=== PATIENT | male | born 1970 | race Caucasian/White ===

== ENCOUNTER 2025-09-05 21:09 | Observation (INO) ==
[2025-09-05 21:46] LABS: Hematocrit (blood only) 43.4 % (42.0-52.0); Hemoglobin 15.4 g/dL (14.0-18.0); Immature Granulocytes # (auto) 0.01 K/uL (0.01-0.20); Immature Granulocytes % (auto) 0.1 %; Mean Corpuscular Hemoglobin 30.7 pg (25.0-34.0); Mean Corpuscular Volume 86.6 fL (80.0-100.0); Platelet Count 147 K/uL (130-400); RDW Standard Deviation 39.4 fL (36.4-46.3); Red Blood Count 5.01 M/uL (4.70-6.10); White Blood Count 7.41 K/ul (4.8-10.8)
--- NOTE | 2025-09-05 21:50 | Emergency Department Note ---
Impression & Plan GBM (glioblastoma multiforme), Seizure ED Provider Note NAME: ISAIAH WHITTEN AGE: 55 SEX: M : 1970 ARRIVES VIA: Walk-In INFORMANT: Patient ED PROVIDER(S): Dorian Benton DO CHIEF COMPLAINT: Right-sided weakness HPI: Patient is a 55-year-old male with a past medical history of GBM and resection in 2020 in 2024 who had a recent MRI which showed a likely recurrence. He presents to the ER as tonight around 745 to 8 PM he had tingling in bilateral hands and then had right-sided facial droop right arm and right leg weakness. Patient denies any head pain or neck pain. No chest pain or shortness of breath. No belly pain. No nausea, vomiting, or diarrhea. No dysuria, urgency or frequency. No other exacerbating or remitting factors. ADDITIONAL HISTORY OBTAINED: Per HPI Chronic Medical/Social Conditions Affecting Care: Per HPI PAST MEDICAL HISTORY:See Below PAST SURGICAL HISTORY:See Below FAMILY HISTORY:See Below SOCIAL HISTORY:See Below HOME MEDICATIONS:See Below ALLERGIES:See Below VITALS:See Below PHYSICAL EXAMINATION: GENERAL: Sitting up in bed, alert, right-sided facial droop EYE EXAM: normal conjunctiva. PERRL and EOM's grossly intact. OROPHARYNX: no exudate, no erythema, lips, buccal mucosa, and tongue normal and mucous membranes are moist NECK: supple, no nuchal rigidity, no adenopathy, non-tender LUNGS: Clear to auscultation. Normal chest wall mechanics HEART: no murmurs, S1 normal and S2 normal ABDOMEN: abdomen soft, non-tender, normo-active bowel sounds, no masses, no rebound or guarding. BACK: Back is symmetrical on inspection and there is no deformity, no midline tenderness, no CVA tenderness. SKIN: no rashes and no bruising UPPER EXTREMITIES: upper extremities are grossly normal. LOWER EXTREMITIES: No pitting edema. NEURO EXAM: Normal sensorium, cranial nerves II through XII are intact with the exception of right-sided facial droop, normal speech, weakness of the right arm and right leg MEDICAL DECISION MAKING: Patient is a 55-year-old male who presents ER for the above-stated complaint. IV was established and blood work is obtained. Labs show no significant leukocytosis or anemia. INR unremarkable. BMP along LFTs bilirubin and troponin was negative. CT angios of the head and neck show no LVO. Stroke alert was called. Discussed with Dana telestroke and they evaluate the patient at bedside. They favor that this is likely seizure related. Recommended additional 1 g of Keppra in combination with continuing his current Decadron regiment without increasing dose. They note he does not need to be transferred tonight. Did recommend discussion with his surgeon/oncologist tomorrow and recommended EEG and Case was discussed with the hospitalist for further evaluation management treatment. Consults/Care Managements Discussions: Per [facility] Triage Nursing notes reviewed. Limited review of prior medical records performed Vital Signs: reviewed and remarkable for no significant abnormalities Differential diagnosis: Differential Diagnosis includes but is not limited to ischemic Stroke, hemorrhagic stroke, bells palsy, mass, neoplasm, migraine headache, seizure, subarachnoid hemorrhage, TIA, and transient global amnesia. ER treatment provided: See below Diagnostics interpreted by me include EKG and cardiac monitoring as listed below: -Cardiac Monitoring: An order was placed for continuous cardiac monitoring. The monitor shows a rate of 80 with sinus rhythm. -ECG: Sinus rhythm rate of 68 Normal axis Right bundle branch block QTc 455 -Laboratory studies:Interpreted by me as stated above in MDM and shown below. Imaging studies: Xrays: As interpreted by me:none CTs show: CT of the head per my pleurae interpretation showed no obvious large bleed CT angios of the head and neck as described above Procedures:none Critical Care: None Past Med/Surg History Problem List (Updated 09/06/25 @ 16:13 by Shelton Akins MD, PhD) Seizure Vasogenic edema Stroke-like symptoms Right hemiplegia GBM (glioblastoma multiforme) (Acute) Homonymous hemianopia Sleep apnea Seizure (Acute 2020) Stroke Dyslipidemia Malignant neoplasm of brain treated with radiation therapy (2020) Cerebrovascular accident (CVA) of right basal ganglia Glioblastoma multiforme of occipital lobe (2020) Glioblastoma multiforme of parietal lobe (2020) Surgical History S/P craniotomy S/P vasectomy S/P craniotomy (2020) Family History Mother Age: 84 Multiple sclerosis Depression Father Alcohol abuse Heart disease Hypertension Grandmother Hypercholesterolemia Hypertension Grandfather Hypercholesterolemia Hypertension Grandmother Breast cancer Hypercholesterolemia Hypertension Grandfather Hypercholesterolemia Hypertension Uncle Hypercholesterolemia Hypertension Parkinson's disease not affecting current episode of care Social History Smoking Status: Never smoker Second Hand Exposure: No; Do You Dip or Chew Tobacco: No; Hx Alcohol Use: No Hx Substance Use: No Preferred Language: B[place] Communication Ability: Effective Visual Impairment: No Limitations Hearing Ability: Normal Can Slider Required: Yes Beliefs That Will Affect Care: None marital status: Current Living Situation: Spouse current occupational status: retired Feels Safe at Home: Yes Safety Concerns: Feels Safe At This Time Childhood Exposure to Second-Hand Smoke: Yes Diet: low carbohydrate Diet Comment: mostly KETO caffeine: No Dental Care, Regularly: No Physical Activity Frequency: Daily Seatbelt Use: always Sunscreen Use: Yes Assistive Devices: None Assistive Devices Comment: Wears CPAP HS Allergies Allergies Allergy/AdvReac Type Severity Reaction Status Date / Time No Known Allergies Allergy Verified 09/04/25 07:50 Home Meds Home Medications Medication Instructions Recorded Confirmed metformin 500 mg tablet 250 mg PO DAILY 10/21/22 09/06/25 melatonin 10 mg capsule 20 mg PO HS 06/14/24 09/06/25 aspirin 325 mg tablet 325 mg PO DAILY 11/17/24 09/06/25 levetiracetam 1,000 mg tablet 1,500 mg PO BID 05/23/25 09/06/25 (Keppra) clobazam 10 mg tablet 5 mg PO HS 06/15/25 09/06/25 fluoxetine 20 mg capsule 20 mg PO HS 09/04/25 09/06/25 gabapentin 300 mg capsule 300 mg PO HS 09/04/25 09/06/25 loratadine 10 mg tablet (Claritin) 10 mg PO DAILY 09/04/25 09/06/25 midazolam 5 mg/spray (0.1 mL) 5 mg intranasal ONCE PRN Seizures 09/04/25 09/06/25 nasal spray (Nayzilam) temozolomide 100 mg capsule 100 mg PO DAILY 09/04/25 09/06/25 valacyclovir 1 gram tablet 1,000 mg PO DAILY 09/04/25 09/06/25 (Valtrex) naltrexone 4.5 mg capsule 4.5 mg PO DAILY 09/06/25 09/06/25 Previous Rx's Medication Instructions Recorded atorvastatin 80 mg tablet 80 mg PO DAILY #90 tabs 10/14/24 digestive enzymes 1 tab PO DAILY #30 tabs 11/17/24 ezetimibe 10 mg tablet (Zetia) 10 mg PO DAILY #90 tabs 07/19/25 dexamethasone 4 mg tablet 4 mg PO DAILY #30 tabs 09/06/25 divalproex 500 mg tablet,delayed 500 mg PO BID #60 tabs 09/06/25 release pantoprazole 40 mg tablet,delayed 40 mg PO QAM #30 tabs 09/06/25 release Results & Data (ED) Vital Signs Vital Signs - 24 hr 09/05/25 21:10 09/05/25 21:22 09/05/25 21:23 Temperature 36.9 C Temperature Source Oral Pulse Rate 72 68 Pulse Rate [Apical] Pulse Rate from SpO2 Sensor 66 Pulse Rhythm Regular Pulse Strength Normal Respiratory Rate 18 Respiratory Effort / Characteristics Non-Labored Spontaneous Respiratory Depth Normal Respiratory Pattern Regular Blood Pressure 124/83 133/91 Blood Pressure Mean 96 102 Blood Pressure Position Sitting Pulse Oximetry 98 97 Oxygen Delivery Method Room Air Room Air Sepsis Recent Fever Within 48 Hours No Sepsis New/Unexplained Change in Mental Status N/A Sepsis Action Taken by Nursing No Action Required 09/05/25 21:39 09/05/25 21:44 09/05/25 21:47 Temperature Temperature Source Pulse Rate 76 76 Pulse Rate [Apical] Pulse Rate from SpO2 Sensor 81 Pulse Rhythm Pulse Strength Respiratory Rate 19 Respiratory Effort / Characteristics Respiratory Depth Respiratory Pattern Blood Pressure Blood Pressure Mean Blood Pressure Position Pulse Oximetry 97 96 Oxygen Delivery Method Room Air Room Air Sepsis Recent Fever Within 48 Hours Sepsis New/Unexplained Change in Mental Status Sepsis Action Taken by Nursing 09/05/25 21:47 09/05/25 21:48 09/05/25 21:51 Temperature Temperature Source Pulse Rate 79 Pulse Rate [Apical] 74 Pulse Rate from SpO2 Sensor 76 Pulse Rhythm Pulse Strength Respiratory Rate 21 Respiratory Effort / Characteristics Respiratory Depth Respiratory Pattern Blood Pressure 130/92 Blood Pressure Mean 107 Blood Pressure Position Pulse Oximetry 97 Oxygen Delivery Method Room Air Sepsis Recent Fever Within 48 Hours Sepsis New/Unexplained Change in Mental Status Sepsis Action Taken by Nursing 09/05/25 22:00 09/05/25 22:00 09/05/25 22:12 Temperature Temperature Source Pulse Rate 72 70 Pulse Rate [Apical] Pulse Rate from SpO2 Sensor 73 71 Pulse Rhythm Pulse Strength Respiratory Rate 16 18 Respiratory Effort / Characteristics Respiratory Depth Respiratory Pattern Blood Pressure 135/97 135/97 Blood Pressure Mean 109 115 Blood Pressure Position Pulse Oximetry 98 95 Oxygen Delivery Method Room Air Room Air Sepsis Recent Fever Within 48 Hours Sepsis New/Unexplained Change in Mental Status Sepsis Action Taken by Nursing 09/05/25 22:15 09/05/25 22:15 09/05/25 22:21 Temperature Temperature Source Pulse Rate 67 69 Pulse Rate [Apical] Pulse Rate from SpO2 Sensor 66 69 Pulse Rhythm Pulse Strength Respiratory Rate 16 Respiratory Effort / Characteristics Respiratory Depth Respiratory Pattern Blood Pressure 124/85 Blood Pressure Mean 94 Blood Pressure Position Pulse Oximetry 94 97 Oxygen Delivery Method Room Air Room Air Sepsis Recent Fever Within 48 Hours Sepsis New/Unexplained Change in Mental Status Sepsis Action Taken by Nursing 09/05/25 22:30 09/05/25 22:45 09/05/25 23:00 Temperature Temperature Source Pulse Rate 67 66 Pulse Rate [Apical] Pulse Rate from SpO2 Sensor 64 Pulse Rhythm Pulse Strength Respiratory Rate 18 12 17 Respiratory Effort / Characteristics Respiratory Depth Respiratory Pattern Blood Pressure 122/82 121/86 122/84 Blood Pressure Mean 95 97 96 Blood Pressure Position Pulse Oximetry 96 94 98 Oxygen Delivery Method Room Air Sepsis Recent Fever Within 48 Hours Sepsis New/Unexplained Change in Mental Status Sepsis Action Taken by Nursing 09/05/25 23:15 09/05/25 23:30 Temperature Temperature Source Pulse Rate 55 L 65 Pulse Rate [Apical] Pulse Rate from SpO2 Sensor Pulse Rhythm Pulse Strength Respiratory Rate 14 12 Respiratory Effort / Characteristics Respiratory Depth Respiratory Pattern Blood Pressure 122/82 122/87 Blood Pressure Mean 95 98 Blood Pressure Position Pulse Oximetry 94 Oxygen Delivery Method Sepsis Recent Fever Within 48 Hours Sepsis New/Unexplained Change in Mental Status Sepsis Action Taken by Nursing Laboratory Data 09/05/25 21:25 09/05/25 21:25 Lab Results 09/05/25 09/05/25 09/05/25 Range/Units 21:22 21:25 21:27 WBC 7.41 (4.8-10.8) K/ul RBC 5.01 (4.70-6.10) M/uL Hgb 15.4 (14.0-18.0) g/dL POC Hgb 13.9 L (14.0-18.0) g/dl Hct 43.4 (42.0-52.0) % POC Hct 41 L (42-52) % MCV 86.6 (80.0-100.0) fL MCH 30.7 (25.0-34.0) pg MCHC 35.5 (32.0-36.0) g/dL RDW Std Deviation 39.4 (36.4-46.3) fL RDW Coeff of Debra 12.7 (11.5-14.5) % Plt Count 147 (130-400) K/uL MPV 9.1 L (9.4-12.4) fL Immature Gran % (Auto) 0.1 % Neut % (Auto) 76.7 % Lymph % (Auto) 16.2 % [place] % (Auto) 6.5 % Eos % (Auto) 0.1 % Baso % (Auto) 0.4 % Neut # (Auto) 5.68 (1.40-6.50) K/uL Lymph # (Auto) 1.20 (1.20-3.40) K/uL [place] # (Auto) 0.48 (0.11-0.59) K/uL Eos # (Auto) 0.01 (0.00-0.50) K/uL Baso # (Auto) 0.03 (0.00-0.20) K/uL Immature Gran # (Auto) 0.01 (0.01-0.20) K/uL PT 10.4 (9.0-12.0) Seconds INR 1.0 (0.9-1.1) APTT 21 (21-31) Seconds PTT Ratio 0.8 POC Sodium 139 (135-144) mmol/L Sodium 138 (136-145) mmol/L POC Potassium 4.4 (3.3-5.0) mmol/L Potassium 4.3 (3.5-5.1) mmol/L POC Chloride 100 L (101-112) mmol/L Chloride 103 (98-107) mmol/L Carbon Dioxide 29 (21-32) mmol/L POC Total CO2 28 (24-31) mmol/L Anion Gap 6 (3-11) POC Anion Gap 16.0 (16-25) mmol/L POC BUN 21 H (7-18) mg/dl BUN 21 (6-23) mg/dl Creatinine 1.08 (0.6-1.4) mg/dl POC Creatinine 1.2 (0.6-1.3) mg/dl Est Cr Clr Drug Dosing 73.1 ml/min eGFR 81.55 BUN/Creatinine Ratio 19.4 (10-20) Glucose 103 H (70-99(Fasting)) mg/dl POC Glucose 115 H (70-99) mg/dl POC Glucose (other) 97 (70-99) mg/dl Calcium 9.1 (8.6-10.3) mg/dl POC Ioniz Calcium [place] 1.13 (1.12-1.32) mmol/l Magnesium 2.1 (1.7-2.4) mg/dl Total Bilirubin 0.5 (0.2-1.0) mg/dl AST 19 (13-39) U/L ALT 24 (7-52) U/L Alkaline Phosphatase 37 (34-104) U/L Troponin I High Sens < 2.3 (0-20) pg/ml Total Protein 6.4 (6.0-8.3) gm/dl Albumin 4.0 (3.4-5.0) gm/dl Globulin 2.4 L (2.5-4.0) gm/dl Albumin/Globulin Ratio 1.7 (0.9-2) Administered Medications Acetaminophen (Acetaminophen 325 Mg Tab) 650 mg PO Q4H PRN PRN Reason: Pain or Fever Stop: 10/06/25 02:12 Last Admin: 09/06/25 09:16 Dose: 650 mg Documented By: YELITZA Aspirin (Aspirin 325 Mg Ectab) 325 mg PO DAILY [facility] Stop: 10/06/25 08:59 Last Admin: 09/06/25 08:12 Dose: Not Given Documented By: AGNES Dexamethasone (Dexamethasone 4 Mg Tab) 4 mg PO DAILY [facility] Stop: 10/06/25 15:59 Last Admin: 09/06/25 16:57 Dose: 4 mg Documented By: YELITZA Divalproex Sodium (Divalproex Delay Release 500 Mg Tab) 500 mg PO BID [facility] Stop: 10/06/25 10:44 Last Admin: 09/06/25 12:19 Dose: 500 mg Documented By: AGNES Ezetimibe (Ezetimibe 10 Mg Tab) 10 mg PO DAILY [facility] Stop: 10/06/25 08:59 Last Admin: 09/06/25 08:22 Dose: 10 mg Documented By: AGNES Levetiracetam (Levetiracetam 500 Mg Tab) 1,500 mg PO BID [facility] Stop: 10/06/25 08:59 Last Admin: 09/06/25 08:17 Dose: 1,500 mg Documented By: AGNES Loratadine (Loratadine 10 Mg Tab) 10 mg PO DAILY [facility] Stop: 10/06/25 08:59 Last Admin: 09/06/25 08:16 Dose: 10 mg Documented By: AGNES Valacyclovir HCl (Valacyclovir Hcl 500 Mg Tablet) 1,000 mg PO DAILY [facility] Stop: 10/06/25 08:59 Last Admin: 09/06/25 08:22 Dose: 1,000 mg Documented By: AGNES Discontinued Medications Atorvastatin Calcium (Atorvastatin 40 Mg Tab) 80 mg PO DAILY [facility] Stop: 10/06/25 08:59 Last Admin: 09/06/25 12:10 Dose: Not Given Documented By: AGNES Dexamethasone (Dexamethasone 1 Mg Tab) 2 mg PO DAILY [facility] Stop: 10/06/25 08:59 Last Admin: 09/06/25 08:17 Dose: 2 mg Documented By: AGNES Fluoxetine HCl (Fluoxetine Hcl 20 Mg Cap) 20 mg PO DAILY [facility] Stop: 10/06/25 08:59 Last Admin: 09/06/25 12:10 Dose: Not Given Documented By: AGNES Gabapentin (Gabapentin 300 Mg Cap) 300 mg PO QAM [facility] Stop: 10/06/25 08:59 Last Admin: 09/06/25 12:10 Dose: Not Given Documented By: AGNES Gadobutrol (Gadobutrol 65ml Vial) 7 ml IV ONCE ONE Stop: 09/06/25 13:17 Last Admin: 09/06/25 13:12 Dose: 7 ml Documented By: ABDI Acetaminophen (Ofirmev) 1,000 mg in 100 mls @ 400 mls/hr IV NOW STA Stop: 09/06/25 13:59 Last Infusion: 09/06/25 14:24 Dose: Infused Documented By: Admin: 09/06/25 13:55 Dose: 400 mls/hr Documented By: AGNES Levetiracetam (Levetiracetam 500 Mg/5 Ml Vial) 1,000 mg IV NOW STA Stop: 09/05/25 22:56 Last Admin: 09/05/25 23:01 Dose: 1,000 mg Documented By: CINTHYA Naltrexone HCl (Naltrexone Hcl 4.5 Mg Tab) 4.5 mg PO QAM [facility] Stop: 10/06/25 08:59 Last Admin: 09/06/25 12:10 Dose: Not Given Documented By: AGNES Pantoprazole Sodium (Pantoprazole 40 Mg Tab) 40 mg PO NOW STA Stop: 09/06/25 15:50 Last Admin: 09/06/25 16:58 Dose: Not Given Documented By: YELITZA [facility]ozolomide ([facility] 100 Mg Capsule) [facility] [place] [facility] [place]: 10/06/25 08:59 Last Admin: 09/06/25 12:10 Dose: Not Given Documented By: AGNES Imaging Data Radiologist's Impression: Head CT 09/05/25 21:18 CR Exam(s): CT HEAD Without Contrast EXAM: CT Head Without Intravenous Contrast CLINICAL HISTORY: Reason for exam: neuro deficit, acute stroke suspected. TECHNIQUE: Axial computed tomography images of the head/brain without intravenous contrast. CTDI is 11.71 mGy and DLP is 1558.94 mGy-cm. Automated exposure control was utilized for the study. A dose lowering technique was utilized adhering to the principles of ALARA. COMPARISON: MRI 05/29/2025. FINDINGS: Brain: Left convexity extra-axial fluid again noted, stable, intermittent, in the frontal, and parieto-occipital regions. Vasogenic edema in the left hemisphere has progressed, can now be seen involving the genu of the left corpus callosum. Stable or progressive vasogenic edema in the right hemisphere. Postoperative cavity left parietal lobe, fairly stable. No significant mass effect, or herniation. No acute infarct or acute hemorrhage. Ventricles: No hydrocephalus or midline shift. Bones/joints: No acute skull fracture. Previous left parietal craniotomy. Soft tissues: No scalp hematoma. Visualized Sinuses: Clear. Mastoid air cells: No mastoid effusion. IMPRESSION: 1. Progressive vasogenic edema left hemisphere. 2. Stable postoperative cavity left parietal lobe and intermittent left convexity subdural fluid collection. Three. No hemorrhage, hydrocephalus or herniation. Communications: Call Doctor Stroke Electronically signed by: Tanja Ko M.D. 09/05/25 21:48 PM Head CTA 09/05/25 21:18 CR Exam(s): CTA HEAD With Contrast IV Amt: 115 cc opti 320 EXAM: CT Angiography Head With Intravenous Contrast CLINICAL HISTORY: Reason for exam: neuro deficit, acute stroke suspected. Known GBM. TECHNIQUE: Axial computed tomographic angiography images of the head with intravenous contrast. Automated exposure control was utilized for the study. A dose lowering technique was utilized adhering to the principles of ALARA. MIP reconstructed images were created and reviewed. Moderate motion/artifact. CONTRAST: Patient received 115 cc opti 320 of IV contrast COMPARISON: Head CT same day. FINDINGS: Right internal carotid artery: Patent. Right anterior cerebral artery: Patent. Right middle cerebral artery: Patent. Right posterior cerebral artery: Patent. Right vertebral artery: Patent. Left internal carotid artery: Patent. Left anterior cerebral artery: Patent. Left middle cerebral artery: Patent. Left posterior cerebral artery: Patent. Left vertebral artery: Patent. Basilar artery: Patent. Other: No gross abnormal enhancement with attention to the left parietal postoperative cavity. IMPRESSION: 1. No aneurysm or large vessel occlusion. Communications: Call Doctor Stroke Electronically signed by: Tanja Ko M.D. 09/05/25 22:03 PM Neck CTA 09/05/25 21:18 CR Exam(s): CTA NECK With Contrast IV Amt: 115 cc opti 320 EXAM: CT Angiography Neck With Intravenous Contrast CLINICAL HISTORY: Reason for exam: neuro deficit, acute stroke suspected. TECHNIQUE: Routine carotid CT angiography protocol was performed with intravenous contrast. NASCET criteria using the distal ICAs for comparison were used for evaluation of stenoses. Automated exposure control was utilized for the study. A dose lowering technique was utilized adhering to the principles of ALARA. MIP reconstructed images were created and reviewed. Mild artifact from motion and dental metal. CONTRAST: Patient received 115 cc opti 320 of IV contrast COMPARISON: None. FINDINGS: Right common carotid artery: Patent. Right internal carotid artery: Patent. Right vertebral artery: Patent. Codominant. Left common carotid artery: Patent. Left internal carotid artery: Patent. Left vertebral artery: Patent. Other: No significant carotid atherosclerosis or stenosis. IMPRESSION: 1. No dissection, occlusion, or significant stenosis. CAROTID STENOSIS REFERENCE USING NASCET CRITERIA: % ICA stenosis = (1 - narrowest ICA diameter/diameter of distal cervical ICA) x 100. Mild - <50% stenosis. Moderate - 50-69% stenosis. Severe - 70-94% stenosis. Near occlusion - 95-99% stenosis. Occluded - 100% stenosis. Communications: Call Doctor Stroke Electronically signed by: Tanja Ko M.D. 09/05/25 22:05 PM Discharge Plan Visit Data Chief Complaint: Stroke Alert Stated Complaint: RT SIDE NUMB, GBM DIAGNOSIS, BRAIN SUGAR 09/11 ED Provider: Dorian Benton Discharge Problem: GBM (glioblastoma multiforme), Seizure Patient Disposition: Admitted As Inpatient Condition: Fair Discharge Instructions Interventions: ED Discharge Assessment Last Done: 09/06/25 01:28
[2025-09-05 22:02] LABS: Alanine Aminotransferase 24 U/L (7-52); Albumin Globulin Ratio 1.7 (0.9-2); Albumin Level 4.0 gm/dl (3.4-5.0); Alkaline Phosphatase 37 U/L (34-104); Anion Gap 6 (3-11); Bilirubin,Total 0.5 mg/dl (0.2-1.0); Blood Urea Nitrogen 21 mg/dl (6-23); Calcium 9.1 mg/dl (8.6-10.3); Carbon Dioxide 29 mmol/L (21-32); Chloride 103 mmol/L (98-107); Creatinine Clr Calc Pharmacy 73.1 ml/min; Globulin 2.4 gm/dl (2.5-4.0); Glucose 103 mg/dl (70-99(Fasting)); Magnesium 2.1 mg/dl (1.7-2.4); Potassium 4.3 mmol/L (3.5-5.1); Sodium 138 mmol/L (136-145); Total Protein 6.4 gm/dl (6.0-8.3)
--- NOTE | 2025-09-05 22:05 | CT Scan Report ---
Exam(s): CTA HEAD With Contrast IV Amt: 115 cc opti 320 EXAM: CT Angiography Head With Intravenous Contrast CLINICAL HISTORY: Reason for exam: neuro deficit, acute stroke suspected. Known GBM. TECHNIQUE: Axial computed tomographic angiography images of the head with intravenous contrast. Automated exposure control was utilized for the study. A dose lowering technique was utilized adhering to the principles of ALARA. MIP reconstructed images were created and reviewed. Moderate motion/artifact. CONTRAST: Patient received 115 cc opti 320 of IV contrast COMPARISON: Head CT same day. FINDINGS: Right internal carotid artery: Patent. Right anterior cerebral artery: Patent. Right middle cerebral artery: Patent. Right posterior cerebral artery: Patent. Right vertebral artery: Patent. Left internal carotid artery: Patent. Left anterior cerebral artery: Patent. Left middle cerebral artery: Patent. Left posterior cerebral artery: Patent. Left vertebral artery: Patent. Basilar artery: Patent. Other: No gross abnormal enhancement with attention to the left parietal postoperative cavity. IMPRESSION: 1. No aneurysm or large vessel occlusion. Communications: Call Doctor Stroke Electronically signed by: Tanja Ko M.D. 09/05/25 22:03 PM
--- NOTE | 2025-09-05 22:07 | CT Scan Report ---
Exam(s): CTA NECK With Contrast IV Amt: 115 cc opti 320 EXAM: CT Angiography Neck With Intravenous Contrast CLINICAL HISTORY: Reason for exam: neuro deficit, acute stroke suspected. TECHNIQUE: Routine carotid CT angiography protocol was performed with intravenous contrast. NASCET criteria using the distal ICAs for comparison were used for evaluation of stenoses. Automated exposure control was utilized for the study. A dose lowering technique was utilized adhering to the principles of ALARA. MIP reconstructed images were created and reviewed. Mild artifact from motion and dental metal. CONTRAST: Patient received 115 cc opti 320 of IV contrast COMPARISON: None. FINDINGS: Right common carotid artery: Patent. Right internal carotid artery: Patent. Right vertebral artery: Patent. Codominant. Left common carotid artery: Patent. Left internal carotid artery: Patent. Left vertebral artery: Patent. Other: No significant carotid atherosclerosis or stenosis. IMPRESSION: 1. No dissection, occlusion, or significant stenosis. CAROTID STENOSIS REFERENCE USING NASCET CRITERIA: % ICA stenosis = (1 - narrowest ICA diameter/diameter of distal cervical ICA) x 100. Mild - <50% stenosis. Moderate - 50-69% stenosis. Severe - 70-94% stenosis. Near occlusion - 95-99% stenosis. Occluded - 100% stenosis. Communications: Call Doctor Stroke Electronically signed by: Tanja Ko M.D. 09/05/25 22:05 PM
[2025-09-05 22:20] LABS: INR 1.0 (0.9-1.1); Partial Thromboplastin Time 21 Seconds (21-31); Prothrombin Time 10.4 Seconds (9.0-12.0)
--- NOTE | 2025-09-05 23:44 | History & Physical Report ---
Date of Service September 05, 2025 Assessment & Plan (1) Right hemiplegia: (2) Stroke-like symptoms: (3) Vasogenic edema: (4) GBM (glioblastoma multiforme): Plan The patient is a 55-year-old male with a past medical history including GBM occipital lobe and parietal lobe diagnosed 01/25/2021 and surgery 01/24/2021. Status post radiation therapy in 2020. Seizures noted in 2020 with patient on Keppra 1500 mg p.o. twice daily Onfi 5 mg at bedtime. On 04/25/2025 patient underwent right craniotomy with resection of of a suspected recurrence of GBM by Dr. Duron at the [facility], however, pathology was negative. Patient is presently scheduled undergo craniotomy on 09/11/2025. Earlier this evening, he had bilateral hand tingling, felt lightheaded and nauseous around 19:50, then developed right facial droop, and right arm and leg weakness. His noted some slowed and slurred speech around 21:30, and patient was brought to the emergency department for assessment. In the emergency department he was evaluated initially as a stroke alert, with CT head showing provide progressive vasogenic edema left hemisphere, and stable postoperative The left parietal lobe and intermittent left convexity subdural fluid collection. There is no hemorrhage, hydrocephalus or herniation noted. CT angiography head and neck were both negative. While in the emergency department, patient was initially noted to have decreased strength right upper and lower extremity, and right facial droop. Strength improved to normal while still in ED, right facial droop was significantly improved but not resolved. Telestroke neurology consult recommends that the patient be admitted for monitoring, EEG in the morning, and possible MRI. notes, that the patient is due for an MRI on 09/08 at [facility], as pretesting appointment at the facility where he will be having neurosurgery on 09/11/2025. Telestroke recommends no change in dexamethasone dosing at 2 mg daily, does recommend giving an additional dose of Keppra this evening. #Transient right hemiplegia/right facial droop- The patient will be admitted to telemetry for serial cardiac enzymes, serial EKG's, cardiac rhythm monitoring and a 2-D echocardiogram with Dopplers. Initially evaluated as strokelike symptoms, however, [facility] telestroke neurology feels more related to seizure type activity. As noted, patient's symptoms completely resolved while still in the emergency department, except for right facial droop was about 90% resolved. Continue dexamethasone 2 mg p.o. daily, aspirin 325 mg daily, gabapentin 300 mg daily, temozolomide 1 mg daily, naltrexone 4.5 mg daily. Will give an additional dose of Keppra this evening, and otherwise continue Keppra 1500 mg p.o. twice daily as recommended by telestroke neurology. EEG is ordered for the morning. His reports that the patient is due for an MRI of the brain on 09/08 at [facility], as pretesting for neurosurgery on 09/11/2025 #Hyperlipidemia- Continue atorvastatin and Zetia #Psychiatric- Continue fluoxetine, gabapentin, melatonin #Diabetes mellitus- Hold metformin Glucose 103 on admission Hold on routine testing unless morning labs elevated #IPERRE- Utilizes CPAP 6 cm of water at bedtime as needed #Chronic suppressive therapy- Continue valacyclovir #-Allergic symptoms- Continue loratadine History of Present Illness Primary Care Provider: Bj Gallegos DO The patient is a 55-year-old male with a past medical history including GBM occipital lobe and parietal lobe diagnosed 01/25/2021 and surgery 01/24/2021. Status post radiation therapy in 2020. Seizures noted in 2020 with patient on Keppra 1500 mg p.o. twice daily Onfi 5 mg at bedtime. On 04/25/2025 patient underwent right craniotomy with resection of of a suspected recurrence of GBM by Dr. Duron at the [facility], however, pathology was negative. Patient is presently scheduled undergo craniotomy on 09/11/2025. Earlier this evening, he had bilateral hand tingling, felt lightheaded and nauseous around 19:50, then developed right facial droop, and right arm and leg weakness. His noted some slowed and slurred speech around 21:30, and patient was brought to the emergency department for assessment. In the emergency department he was evaluated initially as a stroke alert, with CT head showing provide progressive vasogenic edema left hemisphere, and stable postoperative The left parietal lobe and intermittent left convexity subdural fluid collection. There is no hemorrhage, hydrocephalus or herniation noted. CT angiography head and neck were both negative. While in the emergency department, patient was initially noted to have decreased strength right upper and lower extremity, and right facial droop. Strength improved to normal while still in ED, right facial droop was significantly improved but not resolved. Telestroke neurology consult recommends that the patient be admitted for monitoring, EEG in the morning, and possible MRI. notes, that the patient is due for an MRI on 09/08, as likely workup at the facility where he will be having neurosurgery at 09/11/2025. Telestroke recommends no change in dexamethasone dosing at 2 mg daily, does recommend giving an additional dose of Keppra this evening. Allergies Allergy/AdvReac Type Severity Reaction Status Date / Time No Known Allergies Allergy Verified 09/04/25 07:50 Home Medications Medication Instructions Recorded Confirmed Type metformin 500 mg tablet 250 mg PO DAILY 10/21/22 09/06/25 History melatonin 10 mg capsule 20 mg PO HS 06/14/24 09/06/25 History atorvastatin 80 mg tablet 80 mg PO DAILY #90 tabs 10/14/24 09/06/25 Rx MUSHROOM 2 cap PO DAILY #2 caplets 11/17/24 09/06/25 Rx aspirin 325 mg tablet 325 mg PO DAILY 11/17/24 09/06/25 History digestive enzymes 1 tab PO DAILY #30 tabs 11/17/24 09/06/25 Rx levetiracetam 1,000 mg tablet 1,500 mg PO BID 05/23/25 09/06/25 History (Keppra) clobazam 10 mg tablet 5 mg PO HS 06/15/25 09/06/25 History ezetimibe 10 mg tablet (Zetia) 10 mg PO DAILY #90 tabs 07/19/25 09/06/25 Rx dexamethasone 2 mg tablet 2 mg PO QAM 09/04/25 09/06/25 History fluoxetine 20 mg capsule 20 mg PO HS 09/04/25 09/06/25 History gabapentin 300 mg capsule 300 mg PO HS 09/04/25 09/06/25 History loratadine 10 mg tablet (Claritin) 10 mg PO DAILY 09/04/25 09/06/25 History midazolam 5 mg/spray (0.1 mL) 5 mg intranasal ONCE PRN Seizures 09/04/25 09/06/25 History nasal spray (Nayzilam) temozolomide 100 mg capsule 100 mg PO DAILY 09/04/25 09/06/25 History valacyclovir 1 gram tablet 1,000 mg PO DAILY 09/04/25 09/06/25 History (Valtrex) naltrexone 4.5 mg capsule 4.5 mg PO DAILY 09/06/25 09/06/25 History Past Med/Surg History Problem List (Updated 09/06/25 @ 04:25 by Omar Farley MD) Vasogenic edema Stroke-like symptoms Right hemiplegia GBM (glioblastoma multiforme) (Acute) Homonymous hemianopia Sleep apnea Seizure (Acute 2020) Stroke Dyslipidemia Malignant neoplasm of brain treated with radiation therapy (2020) Cerebrovascular accident (CVA) of right basal ganglia Glioblastoma multiforme of occipital lobe (2020) Glioblastoma multiforme of parietal lobe (2020) Surgical History S/P craniotomy S/P vasectomy S/P craniotomy (2020) Family History Mother Age: 84 Multiple sclerosis Depression Father Alcohol abuse Heart disease Hypertension Grandmother Hypercholesterolemia Hypertension Grandfather Hypercholesterolemia Hypertension Grandmother Breast cancer Hypercholesterolemia Hypertension Grandfather Hypercholesterolemia Hypertension Uncle Hypercholesterolemia Hypertension Parkinson's disease not affecting current episode of care Social History Smoking Status: Never smoker Second Hand Exposure: No; Do You Dip or Chew Tobacco: No; Hx Alcohol Use: No Hx Substance Use: No Preferred Language: Indian Communication Ability: Effective Visual Impairment: No Limitations Hearing Ability: Normal 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 Beliefs That Will Affect Care: None marital status: Current Living Situation: Spouse current occupational status: retired Feels Safe at Home: Yes Childhood Exposure to Second-Hand Smoke: Yes Diet: low carbohydrate Diet Comment: mostly KETO caffeine: No Dental Care, Regularly: No Physical Activity Frequency: Daily Seatbelt Use: always Sunscreen Use: Yes Assistive Devices: CPAP Review of Systems Review of Systems: The patient denies chest pain, palpitations, shortness of breath, dyspnea on exertion, cough, lower extremity swelling, sore throat, fevers, chills, sweats, nausea, vomiting, diarrhea , constipation, abdominal pain, pelvic pain, blood in urine or stool, dysuria, urinary frequency or urgency, loss of consciousness, rash, abnormal bruising or bleeding, focal or generalized weakness, numbness or tingling in left arm or leg, generalized arthralgias or myalgias, back or neck pain, or night sweats. The review of systems is otherwise negative other than for that already noted above, and at least 10 systems have been reviewed. Physical Exam Physical Exam: The patient is awake, alert and oriented 3, well developed and well nourished, resolving right facial droop, lying in bed and in no acute distress. HEENT--PERRL, EOMI, mucous membranes and oropharynx mildly dry. Neck--supple. No JVD. No bruits. Thyroid normal, trachea midline, no adenopathy. Heart--normal S1 and S2. No murmurs, rubs or gallops. Lungs--clear bilaterally, no respiratory distress, no accessory muscle use. Abdomen--normal bowel sounds and soft. Nontender. Nondistended, no hernias or masses, no organomegaly. Extremities--no cyanosis or clubbing. No edema. There are good distal pulses b/l. Dermatologic--normal skin turgor, normal color, no abnormal lymph nodes, no rash. Neurologic--cranial nerves II through XII grossly intact, except for right facial droop. Initial evaluation with 4/5 motor strength right upper and lower extremity. Normalized to 5/5 while in the ED. Patient did continue to have some word finding difficulties, but significantly improved, as was physical speech Rheumatologic--initial evaluation limited by right upper and lower extremity weakness. Full range of motion and strength of extremities bilaterally noted while still in the ED. Psychiatric--normal affect. Results & Data Results & Data Vital Signs (Past 12 Hours) Vital Signs Temp Pulse Pulse Resp BP Pulse Ox O2 Del Method 09/05/25 23:30 65 12 122/87 09/05/25 23:15 55 L 14 122/82 94 09/05/25 23:00 66 17 122/84 98 09/05/25 22:45 67 12 121/86 94 09/05/25 22:30 18 122/82 96 Room Air 09/05/25 22:21 69 16 97 Room Air 09/05/25 22:15 67 94 Room Air 09/05/25 22:15 124/85 09/05/25 22:12 70 18 95 Room Air 09/05/25 22:00 135/97 09/05/25 22:00 72 16 135/97 98 Room Air 09/05/25 21:51 79 21 97 Room Air 09/05/25 21:48 74 09/05/25 21:47 130/92 09/05/25 21:47 96 Room Air 09/05/25 21:44 76 19 97 Room Air 09/05/25 21:39 76 09/05/25 21:23 68 97 Room Air 09/05/25 21:22 133/91 09/05/25 21:10 36.9 C 72 18 124/83 98 Room Air Laboratory Results Laboratory Results WBC 7.41 K/ul (4.8-10.8) 09/05/25: RBC 5.01 M/uL (4.70-6.10) 09/05/25: Hgb 15.4 g/dL (14.0-18.0) 09/05/25: POC Hgb 13.9 g/dl (14.0-18.0) L 09/05/25: Hct 43.4 % (42.0-52.0) 09/05/25: POC Hct 41 % (42-52) L 09/05/25: MCV 86.6 fL (80.0-100.0) 09/05/25: MCH 30.7 pg (25.0-34.0) 09/05/25: MCHC 35.5 g/dL (32.0-36.0) 09/05/25: RDW Std Deviation 39.4 fL (36.4-46.3) 09/05/25: RDW Coeff of Debra 12.7 % (11.5-14.5) 09/05/25: Plt Count 147 K/uL (130-400) 09/05/25: MPV 9.1 fL (9.4-12.4) L 09/05/25: Immature Gran % (Auto) 0.1 % 09/05/25: Neut % (Auto) 76.7 % 09/05/25: Lymph % (Auto) 16.2 % 09/05/25: Hood % (Auto) 6.5 % 09/05/25: Eos % (Auto) 0.1 % 09/05/25 21: Baso % (Auto) 0.4 % 09/05/25: Neut # (Auto) 5.68 K/uL (1.40-6.50) 09/05/25 21: Lymph # (Auto) 1.20 K/uL (1.20-3.40) 09/05/25: Hood # (Auto) 0.48 K/uL (0.11-0.59) 09/05/25: Eos # (Auto) 0.01 K/uL (0.00-0.50) 09/05/25: Baso # (Auto) 0.03 K/uL (0.00-0.20) 09/05/25: Immature Gran # (Auto) 0.01 K/uL (0.01-0.20) 09/05/25: PT 10.4 Seconds (9.0-12.0) 09/05/25: INR 1.0 (0.9-1.1) 09/05/25: APTT 21 Seconds (21-31) 09/05/25: PTT Ratio 0.8 09/05/25: POC Sodium 139 mmol/L (135-144) 09/05/25 21: Sodium 138 mmol/L (136-145) 09/05/25: POC Potassium 4.4 mmol/L (3.3-5.0) 09/05/25: Potassium 4.3 mmol/L (3.5-5.1) 09/05/25: POC Chloride 100 mmol/L (101-112) L 09/05/25: Chloride 103 mmol/L (98-107) 09/05/25: Carbon Dioxide 29 mmol/L (21-32) 09/05/25: POC Total CO2 28 mmol/L (24-31) 09/05/25 21: Anion Gap 6 (3-11) 09/05/25 21:25 POC Anion Gap 16.0 mmol/L (16-25) 09/05/25 21: POC BUN 21 mg/dl (7-18) H 09/05/25 21: BUN 21 mg/dl (6-23) 09/05/25 21: Creatinine 1.08 mg/dl (0.6-1.4) 09/05/25: POC Creatinine 1.2 mg/dl (0.6-1.3) 09/05/25 21: Est Cr Clr Drug Dosing 73.1 ml/min 09/05/25 21: eGFR 81.55 09/05/25: BUN/Creatinine Ratio 19.4 (10-20) 09/05/25 21: Glucose 103 mg/dl (70-99(Fasting)) H 09/05/25 21: POC Glucose 115 mg/dl (70-99) H 09/05/25 21: POC Glucose (other) 97 mg/dl (70-99) 09/05/25: Calcium 9.1 mg/dl (8.6-10.3) 09/05/25: POC Ioniz Calcium [place] 1.13 mmol/l (1.12-1.32) 09/05/25: Magnesium 2.1 mg/dl (1.7-2.4) 09/05/25: Total Bilirubin 0.5 mg/dl (0.2-1.0) 09/05/25: AST 19 U/L (13-39) 09/05/25: ALT 24 U/L (7-52) 09/05/25: Alkaline Phosphatase 37 U/L (34-104) 09/05/25: Troponin I High Sens < 2.3 pg/ml (0-20) 09/05/25: Total Protein 6.4 gm/dl (6.0-8.3) 09/05/25: Albumin 4.0 gm/dl (3.4-5.0) 09/05/25: Globulin 2.4 gm/dl (2.5-4.0) L 09/05/25: Albumin/Globulin Ratio 1.7 (0.9-2) 09/05/25 21:[address] 09/05/25 21:18 CR Exam(s): CT HEAD Without Contrast EXAM: CT Head Without Intravenous Contrast CLINICAL HISTORY: Reason for exam: neuro deficit, acute stroke suspected. TECHNIQUE: Axial computed tomography images of the head/brain without intravenous contrast. CTDI is 11.71 mGy and DLP is 1558.94 mGy-cm. Automated exposure control was utilized for the study. A dose lowering technique was utilized adhering to the principles of ALARA. COMPARISON: MRI 05/29/2025. FINDINGS: Brain: Left convexity extra-axial fluid again noted, stable, intermittent, in the frontal, and parieto-occipital regions. Vasogenic edema in the left hemisphere has progressed, can now be seen involving the genu of the left corpus callosum. Stable or progressive vasogenic edema in the right hemisphere. Postoperative cavity left parietal lobe, fairly stable. No significant mass effect, or herniation. No acute infarct or acute hemorrhage. Ventricles: No hydrocephalus or midline shift. Bones/joints: No acute skull fracture. Previous left parietal craniotomy. Soft tissues: No scalp hematoma. Visualized Sinuses: Clear. Mastoid air cells: No mastoid effusion. IMPRESSION: 1. Progressive vasogenic edema left hemisphere. 2. Stable postoperative cavity left parietal lobe and intermittent left convexity subdural fluid collection. Three. No hemorrhage, hydrocephalus or herniation. Communications: Call Doctor Stroke Electronically signed by: Tanja Ko M.D. 09/05/25 21:48 PM Head CTA 09/05/25 21:18 CR Exam(s): CTA HEAD With Contrast IV Amt: 115 cc opti 320 EXAM: CT Angiography Head With Intravenous Contrast CLINICAL HISTORY: Reason for exam: neuro deficit, acute stroke suspected. Known GBM. TECHNIQUE: Axial computed tomographic angiography images of the head with intravenous contrast. Automated exposure control was utilized for the study. A dose lowering technique was utilized adhering to the principles of ALARA. MIP reconstructed images were created and reviewed. Moderate motion/artifact. CONTRAST: Patient received 115 cc opti 320 of IV contrast COMPARISON: Head CT same day. FINDINGS: Right internal carotid artery: Patent. Right anterior cerebral artery: Patent. Right middle cerebral artery: Patent. Right posterior cerebral artery: Patent. Right vertebral artery: Patent. Left internal carotid artery: Patent. Left anterior cerebral artery: Patent. Left middle cerebral artery: Patent. Left posterior cerebral artery: Patent. Left vertebral artery: Patent. Basilar artery: Patent. Other: No gross abnormal enhancement with attention to the left parietal postoperative cavity. IMPRESSION: 1. No aneurysm or large vessel occlusion. Communications: Call Doctor Stroke Electronically signed by: Tanja Ko M.D. 09/05/25 22:03 PM Neck CTA 09/05/25 21:18 CR Exam(s): CTA NECK With Contrast IV Amt: 115 cc opti 320 EXAM: CT Angiography Neck With Intravenous Contrast CLINICAL HISTORY: Reason for exam: neuro deficit, acute stroke suspected. TECHNIQUE: Routine carotid CT angiography protocol was performed with intravenous contrast. NASCET criteria using the distal ICAs for comparison were used for evaluation of stenoses. Automated exposure control was utilized for the study. A dose lowering technique was utilized adhering to the principles of ALARA. MIP reconstructed images were created and reviewed. Mild artifact from motion and dental metal. CONTRAST: Patient received 115 cc opti 320 of IV contrast COMPARISON: None. FINDINGS: Right common carotid artery: Patent. Right internal carotid artery: Patent. Right vertebral artery: Patent. Codominant. Left common carotid artery: Patent. Left internal carotid artery: Patent. Left vertebral artery: Patent. Other: No significant carotid atherosclerosis or stenosis. IMPRESSION: 1. No dissection, occlusion, or significant stenosis. CAROTID STENOSIS REFERENCE USING NASCET CRITERIA: % ICA stenosis = (1 - narrowest ICA diameter/diameter of distal cervical ICA) x 100. Mild - <50% stenosis. Moderate - 50-69% stenosis. Severe - 70-94% stenosis. Near occlusion - 95-99% stenosis. Occluded - 100% stenosis. Communications: Call Doctor Stroke Electronically signed by: Tanja Ko M.D. 09/05/25 22:05 PM Code Status & VTE Plan Code Status Full code VTE Prophylaxis Plan VTE Prophylaxis will be ordered: Yes PG Care Time/CCT Total # of Minutes Spent Total Time Spent with Patient: Total time spent is greater than 50% in coordination of care (as documented) at patient's floor/unit and/or counseling patient: Coding Level of Care Code 70060 INT INP/OBS CARE 3/75MIN Diagnoses Right hemiplegia G81.91 Stroke-like symptoms R29.90 Vasogenic edema G93.6 GBM (glioblastoma multiforme) C71.9
--- NOTE | 2025-09-06 08:03 | Electroencephalogram ---
EEG Procedure Note Date of Service September 06, 2025 Start / End Times Start Time: 6:13 AM End Time: 6:33 AM Referring Physician Martine History Glioblastoma, strokelike episode, evaluate for seizure activity Home Medication List Medication Instructions Recorded Confirmed Type metformin 500 mg tablet 250 mg PO DAILY 10/21/22 09/06/25 History melatonin 10 mg capsule 20 mg PO HS 06/14/24 09/06/25 History atorvastatin 80 mg tablet 80 mg PO DAILY #90 tabs 10/14/24 09/06/25 Rx MUSHROOM 2 cap PO DAILY #2 caplets 11/17/24 09/06/25 Rx aspirin 325 mg tablet 325 mg PO DAILY 11/17/24 09/06/25 History digestive enzymes 1 tab PO DAILY #30 tabs 11/17/24 09/06/25 Rx levetiracetam 1,000 mg tablet 1,500 mg PO BID 05/23/25 09/06/25 History (Keppra) clobazam 10 mg tablet 5 mg PO HS 06/15/25 09/06/25 History ezetimibe 10 mg tablet (Zetia) 10 mg PO DAILY #90 tabs 07/19/25 09/06/25 Rx dexamethasone 2 mg tablet 2 mg PO QAM 09/04/25 09/06/25 History fluoxetine 20 mg capsule 20 mg PO HS 09/04/25 09/06/25 History gabapentin 300 mg capsule 300 mg PO HS 09/04/25 09/06/25 History loratadine 10 mg tablet (Claritin) 10 mg PO DAILY 09/04/25 09/06/25 History midazolam 5 mg/spray (0.1 mL) 5 mg intranasal ONCE PRN Seizures 09/04/25 09/06/25 History nasal spray (Nayzilam) temozolomide 100 mg capsule 100 mg PO DAILY 09/04/25 09/06/25 History valacyclovir 1 gram tablet 1,000 mg PO DAILY 09/04/25 09/06/25 History (Valtrex) naltrexone 4.5 mg capsule 4.5 mg PO DAILY 09/06/25 09/06/25 History Inpatient Medication List Discontinued Medications Levetiracetam (Levetiracetam 500 Mg/5 Ml Vial) 1,000 mg IV NOW STA Stop: 09/05/25 22:56 Last Admin: 09/05/25 23:01 Dose: 1,000 mg Documented By: CINTHYA Description This is a 21 electrode EEG with a single channel dedicated to limited EKG. The electrodes were placed in accordance with the International 10-20 system. There is an asymmetric background rhythm of 12 Hz, greater amplitude over the left hemisphere likely consistent with a breach rhythm. Photic stimulation is unremarkable. There is an intermittent right frontal sharp and slow wave focus and rare right frontotemporal paroxysmal fast activity. Intermittent right greater than left central delta activity observed as well. Interpretation Abnormal awake/drowsy EEG with evidence of a breach rhythm, right frontal sharp and slow wave focus, and asymmetric central delta activity. These findings are consistent with an underlying multifocal structural and functional abnormality w ith increased risk for seizures. [facility] EEG Procedure Codes Indication for Procedure (1) Stroke-like symptoms: (2) GBM (glioblastoma multiforme): (3) Seizure: Neurology Neurology: 23820 EEG include record awake & drowsy
[2025-09-06] MEDS: ASPIRIN 325 MG ECTAB PO SCH (08:12)
[2025-09-06] MEDS: LORATADINE 10 MG TAB PO SCH (08:16)
[2025-09-06] MEDS: levETIRAcetam 500 MG TAB PO SCH (08:17)
[2025-09-06] MEDS: EZETIMIBE 10 MG TAB PO SCH (08:22)
[2025-09-06] MEDS: ACETAMINOPHEN 325 MG TAB PO PRN (09:16)
[2025-09-06] MEDS ORDERED: ONDANSETRON ORAL SOLN 0.8 MG/1 ML PO PRN (10:34)
[2025-09-06] MEDS ORDERED: ONDANSETRON 4 MG OD TAB PO PRN (10:38)
[2025-09-06] MEDS: ATORVASTATIN 40 MG TAB PO SCH ×2 (12:10→20:38)
[2025-09-06] MEDS: GABAPENTIN 300 MG CAP PO SCH ×2 (12:10→20:39)
[2025-09-06] MEDS: TEMOZOLOMIDE 100 MG CAPSULE PO SCH ×2 (12:10→20:39)
[2025-09-06] MEDS: NALTREXONE HCL 4.5 MG PO SCH (12:10)
[2025-09-06] MEDS: DIVALPROEX DELAY RELEASE 500 MG TAB PO SCH (12:19)
--- NOTE | 2025-09-06 13:04 | XCELERA ---
[id number]
[2025-09-06] MEDS: GADOBUTROL 65ML VIAL IV ONE (13:12)
[2025-09-06] MEDS: ACETAMINOPHEN 1,000 MG/100 ML VIAL IV STA (13:55)
--- NOTE | 2025-09-06 13:58 | Electrocardiogram Report ---
Test Reason : Blood Pressure : */* mmHG Vent. Rate : 68 BPM Atrial Rate : 68 BPM P-R Int : 166 ms QRS Dur : 132 ms QT Int : 428 ms P-R-T Axes : 15 15 17 degrees QTcB Int : 455 ms Normal sinus rhythm Right bundle branch block Abnormal ECG No previous ECGs available Confirmed by Tuan Blum ([id number]) on 09/06/2025 1:58:04 PM Referred By: REFERRED SELF Confirmed By: Tuan Blum
--- NOTE | 2025-09-06 14:01 | Magnetic Resonance Report ---
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 Dizziness with right-s ided weakness in a patient with history of intra-axial mass and prior resection COMPARISON: Head CT 09/05/2025, brain MRI 05/29/2025 from outside facility (images only without report ) TECHNIQUE: Multiplanar multisequence MRI of the brain was obtained with and without IV contrast. FINDINGS: Motion degraded exam. There is no definite restricted diffusion to suggest acute or subacute infarct. Partially empty sella. Degenerative changes of the cervical spine. Cerebral venous sinuses and major arterial flow voids appear patent. Skull, orbits and soft tissues are unchanged. No evidence of maxx al temporal sclerosis. Large left parietal resection cavity redemonstrated which may communicate with the left lateral ventr icle. Vasogenic edema within the centrum semiovale ovale of the posterior frontal and bilateral parie wilber lobes and to a lesser extent within the left greater than right parieto-occipital distribution mcnamara s moderately progressed from 05/29/2025 exam causing gyral expansion, sulcal effacement and partial ef facement of the left lateral ventricle. 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 There is a new large and irregular hetero geneously enhancing mass involving the anterior aspect of the resection cavity with extension into th e left frontal and parietal lobes, crossing the midline with involvement of the corpus callosum and r ight frontal lobe overall measuring approximately 6.4 x 5.1 x 6.0 cm's. Additionally, there is mild d ural thickening and enhancement throughout the left convexity. There is a subcentimeter nodular focus of dural thickening and enhancement on image 207 measuring 6 mm. This is new from prior. IMPRESSION: 1. Recurrent disease with an enhancing 6.4 cm mass along the anterior resection cavity crossing the m idline involving the corpus callosum. 2. Progressive cytotoxic edema, most pronounced in the left frontoparietal lobes resulting in partial effacement of the left lateral ventricle. 3. No hydrocephalus, midline shift or acute intracranial hemorrhage. 4. 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 ACT 112: Negative or not required by law. The above report was generated using voice recognition software. It may contain grammatical, syntax o r spelling errors. Electronically signed by: Dimitrios Laar M.D. 09/06/2025 1:59 PM
--- NOTE | 2025-09-06 16:28 | Discharge Summary ---
Discharge Summary Date of Service September 06, 2025 Principal Dx & Hospital Course #1 = Principal Diagnosis (1) GBM (glioblastoma multiforme): Patient was diagnosed with glioblastoma multiforme of left parietal lobe and underwent resection of left parietal lobe on February 01, 2021 @ [facility] under Neuro-Surgeon Dr. Dany Orantes. Patient subsequently underwent 6.5 weeks of radiation therapy @ [facility] starting in February [address] Lavell Schmidt. Patient subsequently started receiving post-radiation therapy treatment utilizing dexamethasone 2mg PO daily, gabapentin 300mg PO qhs, levetiracetam 1500mg PO bid, clobazam 5mg PO qhs, naltrexone 4.5mg PO qam, and temozolomide 100mg PO qam with [facility] Neuro-Oncologist Dr. Sarah Boateng. Patient subsequently underwent/started/completed neoantigen peptide vaccine treatments (e.g., 1st set of 14 vaccinations, 1 vaccination every 4 weeks) starting in November 2021 @ [facility] ([facility]) [facility] under Co- Dietary Aide/Selling Underwriter/Psychiatric Cns Dr. Mallorie Parra (cf., Loren Parra et al. A real-world observation of patients with glioblastoma treated with a personalized peptide vaccine. [employer]. 15, article number 6870 (2023)) utilizing patient's own brain tissue extracted from the glioblastoma multiforme of left parietal lobe. Patient subsequently underwent/started/completed a 2nd set of 14 neoantigen peptide vaccinations, 1 vaccination every 8 weeks, all at his own expense, as it was not covered by patient's health insurance plan, costing $6,500 per round-trip flights for him and his , Ms. Ela Knight ( ) [place] [facility] ([place], [place]) to [facility] ([facility]) to [facility] ([place], [place]), 2 hour bus trip from [facility] to [facility] to their hotel in [facility], and then hiking up 2 miles to the [facility] location of [facility] ([facility]) [facility]. 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 Patient subsequently underwent surveillance CT/MRI brain in April 11, 2025 with results concerning for recurrent glioblastoma multiforme of left parietal lobe. Patient subsequently underwent resection of left parietal lobe for the second time on April 25, 2025 @ [facility] under Neuro-Surgeon Dr. Dany Orantes. Patient subsequently was informed by Dr. Orantes that pathology slides of the resected left parietal lobe demonstrated NO recurrence of glioblastoma multiforme, and hence, Dr. 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 Patient subsequently reports that he developed expressive aphasia, right hand, right arm, and right leg weakness after undergoing resection of left parietal lobe for the second time on April 25, 2025 @ [facility] under Neuro-Surgeon Dr. Dany Orantes, and had to spend 7 days/nights @ [facility] to convalesce before he could be discharged back to his home in [place], [place]. Patient subsequently started a 3rd set of 14 neoantigen peptide vaccinations, 1 vaccination every 8 weeks, on June 06, 2025. Patient could not undergo/receive the 2nd vaccination in this 3rd set of 14 neoantigen peptide vaccinations as patient underwent surveillance CT/MRI brain/PET scans @ [facility] under Neuro-Oncologist Dr. Aren Bardales on August 08, 2025, which were concerning for recurrent disease versus radiation necrosis of the patient's brain; patient subsequently was advised to follow up with Dr. Bardales on September 08, [address]/MRI brain/PET scans and also to follow up with [facility] Neuro-Surgeon Chief Dr. Tong Koehler II for tentative left parietal lobe/frontal lobe resection(s). Patient subsequently was admitted to [facility] inpatient hospitalist service on 09/05/2025, 9:10pm for possible acute CVA given patient's complaints of expressive aphasia, right hand, right arm, and right leg weakness, while seated in the living room on 09/05/2025, 7:00pm. Patient subsequently underwent: A. CT brain without IV contrast (09/05/2025, 9:18pm): 1. Progressive vasogenic edema left hemisphere. 2. Stable postoperative cavity left parietal lobe and intermittent left convexity subdural fluid collection. 3. No hemorrhage, hydrocephalus or herniation. B. CTA head (09/05/2025, 9:18pm): 1. No aneurysm or large vessel occlusion. C. CTA neck (09/05/2025, 9:18pm): 1. No dissection, occlusion, or significant stenosis. D. EEG (09/06/2025, 6:13am - 6:33am): 1. Abnormal awake/drowsy EEG with evidence of a breach rhythm, right frontal sharp and slow wave focus, and asymmetric central delta activity. 2. These findings are consistent with an underlying multifocal structural and functional abnormality with increased risk for seizures. E. TTE (09/06/2025, 6:36am): 1. LVEF 60-65%. No regional wall motion abnormalities noted. 2. RV not well visualized. 3. LA size normal. Borderline RA enlargement. 4. No . No AR. 5. PV not well visualized. 6. No MS. No MR. 7. No TS. No TR. 8. Aortic root and proximal ascending aorta normal size. Normal IVC size and collapsibility with sniff indicates normal RAP of 3 mm Hg. 9. No pericardial effusion. 10.Grade I LV diastolic dysfunction. (as per CARDS Dr. Tuan Blum). F. MRI brain with/without IV contrast (09/06/2025, 11:45am): FINDINGS: Motion degraded exam. There is no definite restricted diffusion to suggest acute or subacute infarct. Partially empty sella. Degenerative changes of the cervical spine. Cerebral venous sinuses and major arterial flow voids appear patent. Skull, orbits and soft tissues are unchanged. No evidence of mesial temporal sclerosis. Large left parietal resection cavity redemonstrated which may communicate with the left lateral ventricle. Vasogenic edema within the centrum semiovale ovale of the posterior frontal and bilateral parietal lobes and to a lesser extent within the left greater than right parieto-occipital distribution has moderately progressed from 05/29/2025 exam causing gyral expansion, sulcal effacement and partial effacement of the left lateral ventricle. 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 There is a new large and irregular heterogeneously enhancing mass involving the anterior aspect of the resection cavity with extension into the left frontal and parietal lobes, crossing the midline with involvement of the corpus callosum and right frontal lobe overall measuring approximately 6.4 x 5.1 x 6.0 cm's. Additionally, there is mild dural thickening and enhancement throughout the left convexity. There is a subcentimeter nodular focus of dural thickening and enhancement on image 207 measuring 6 mm. This is new from prior. IMPRESSION: 1. Recurrent disease with an enhancing 6.4 cm mass along the anterior resection cavity crossing the midline involving the corpus callosum. 2. Progressive cytotoxic edema, most pronounced in the left frontoparietal lobes resulting in partial effacement of the left lateral ventricle. 3. No hydrocephalus, midline shift or acute intracranial hemorrhage. 4. 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 Patient was subsequently evaluated by [facility] Neurologist Dr. Sam Corbin, who recommended that patient be continued on his home-scheduled levetiracetam 1500mg PO bid, clobazam 5mg PO qhs, and temozolomide 100mg PO qam. In addition, patient was started on depakote DR (valproic acid) 500mg PO bid (09/06/2025, 12:19pm) as per recommendations from [facility] Neurologist Dr. Sam Corbin. I subsequently called and left a message on the answering machine of [facility] Neuro-Surgeon Chief Dr. Tong Koehler II ( ) on 09/06/2025, 2:42pm, conveying all of the above information, and asking if patient should be transferred to [facility] under his service today, 09/06/2025, instead of waiting for patient to see his colleague, [facility] Neuro-Oncologist Dr. Aren Bardales on 09/08/2025, as already scheduled, for patient to undergo surveillance CT/MRI brain/PET scans, or to see him on 09/11/2025, as already scheduled, for patient to undergo tentative left parietal/frontal lobe resection(s). I did not receive a callback from Dr. Koehler as his office was closed for the and upcoming 2025. I subsequently called [facility] ( ) on 09/06/2025, 3:49pm, and asked to speak with either [facility] Neuro-Surgeon Chief Dr. Tong Koehler II and/or [facility] Neuro-Oncologist Dr. Aren Bardales, in order to discuss patient's case/condition. Of note, patient reported to me on 09/06/2025, 9:14am, that he feels "70% better than when I came in yesterday to [facility]" and yet, patient's expressive aphasia persists on 09/06/2025, with patient frequently unable to answer simple, direct questions posed to him about today's date (e.g., 09/06/2025) or tomorrow's date (e.g., 09/07/2025), the name of the hospital where he is located (e.g., [facility]), the city in which the hospital where is located (e.g., [place], [place]), as patient pauses and pauses and pauses, and says nothing at all. Patient remains wide awake and alert, and can follow commands; he simply has difficulty answering questions posed to him by hospitalist service, nursing staff, and his own , all of whom were present at the patient's bedside on admission date 09/05/2025 and on discharge date 09/06/2025. In addition, patient's right hand, right arm, and right leg weakness persist on admission date 09/05/2025 and discharge date 09/06/2025 with an estimated motor strength of 3 to 4+ on a 5 point scale, both proximally and distally, in this right handed male, who was never paralyzed or diagnosed with right hemiplegia on admission date 09/05/2025 or discharge date 09/06/2025. I subsequently spoke to [facility] Neuro-Oncologist Dr. Aren Bardales, conveying all of the above information, and Dr. Bardales recommended that we increase patient's dexamethasone dose from 2mg PO daily (already administered to the patient on 09/06/2025, 8:17am) to 4mg PO daily (administered to the patient on 09/06/2025, 4:57pm), in an attempt to mitigate patient's worsening vasogenic edema/inflammation. Dr. Bardales also recommended that patient be transferred urgently to [facility] and forego the conventional waiting period for patient's insurance plan to review and authorize patient transfer from [facility] to [facility]. To this end, I spoke with [facility] Neuro-Critical Care Dr. Xin Patten, who concurred with Dr. Bardales, and who also informed me that she will have to confer with other members of her patient transfer team now, and that in the interim, [facility] should start the process of faxing patient's face sheet to [facility] ( ) and that [facility] should start the process of providing patient transport via ambulance to transfer patient from [facility] Tele bed #E209-1 to [facility] Telemetry Floor. I subsequently confirmed with patient's nurse, Ricardo Billy Gloria on 09/06/2025, 4:26pm, that patient's face sheet had been successfully faxed to [facility] ( ), and that steps were already being taken to coordinate transport via ambulance to transfer patient from [facility] Tele bed #[id number] to [facility] Telemetry Floor on 09/06/2025. (2) Seizure: As stated in bullet #1 above, patient underwent EEG (09/06/2025, 6:13am - 6:33am): 1. Abnormal awake/drowsy EEG with evidence of a breach rhythm, right frontal sharp and slow wave focus, and asymmetric central delta activity. 2. These findings are consistent with an underlying multifocal structural and functional abnormality with increased risk for seizures. Patient was subsequently evaluated by [facility] Neurologist Dr. Sam Corbin, who recommended that patient be continued on his home-scheduled levetiracetam 1500mg PO bid, clobazam 5mg PO qhs, and temozolomide 100mg PO qam. In addition, patient was started on depakote DR (valproic acid) 500mg PO bid (09/06/2025, 12:19pm) as per recommendations from [facility] Neurologist Dr. Sam Corbin. (3) Stroke-like symptoms: Patient was admitted to [facility] inpatient hospitalist service on 09/05/2025, 9:10pm for possible acute CVA given patient's complaints of expressive aphasia, right hand, right arm, and right leg weakness, while seated in the living room on 09/05/2025, 7:00pm. Patient subsequently ruled out for acute CVA with a number of imaging tests, as stated in bullet #1 above. Hence, I surmise that patient's stroke-like symptoms of expressive aphasia, right hand, right arm, and right leg weakness, while seated in the living room on 09/05/2025, 7:00pm, and persisting in [facility] ER on 09/05/2025, 9:10pm, and even in [facility] Tele bed #E209-1, albeit with improved right hand, right arm, and right leg weakness, is most pro bably due to recurrent disease of glioblastoma multiforme, now manifesting with increased vasogenic cerebral edema, reported verbatim as "Progressive cytotoxic edema, most pronounced in the left frontoparietal lobes resulting in partial effacement of the left lateral ventricle." (as noted on 09/06/2025, 11:45am MRI brain with/without IV contrast). I subsequently called and left a message on the answering machine of [facility] Neuro-Surgeon Chief Dr. Tong Koehler II ( ) on 09/06/2025, 2:42pm, conveying all of the above information, and asking if patient should be transferred to [facility] under his service today, 09/06/2025, instead of waiting for patient to see his colleague, [facility] Neuro-Oncologist Dr. Aren Bardales on 09/08/2025, as already scheduled, for patient to undergo surveillance CT/MRI brain/PET scans, or to see him on 09/11/2025, as already scheduled, for patient to undergo tentative left parietal/frontal lobe resection(s). I did not receive a callback from Dr. Koehler as his office was closed for the and upcoming 2025. I subsequently called [facility] ( ) on 09/06/2025, 3:49pm, and asked to speak with either [facility] Neuro-Surgeon Chief Dr. Tong Koehler II and/or [facility] Neuro-Oncologist Dr. Aren Bardales, in order to discuss patient's case/condition. Of note, patient reported to me on 09/06/2025, 9:14am, that he feels "70% better than when I came in yesterday to [facility]" and yet, patient's expressive aphasia persists on 09/06/2025, with patient frequently unable to answer simple, direct questions posed to him about today's date (e.g., 09/06/2025) or tomorrow's date (e.g., 09/07/2025), the name of the hospital where he is located (e.g., [facility]), the city in which the hospital where is located (e.g., [place], [place]), as patient pauses and pauses and pauses, and says nothing at all. Patient remains wide awake and alert, and can follow commands; he simply has difficulty answering questions posed to him by hospitalist service, nursing staff, and his own , all of whom were present at the patient's bedside on admission date 09/05/2025 and on discharge date 09/06/2025, as if he is thinking about what to say before answering the simple, direct questions. In addition, patient's right hand, right arm, and right leg weakness persist on admission date 09/05/2025 and discharge date 09/06/2025 with an estimated motor strength of 3 to 4+ on a 5 point scale, both proximally and distally, in this right handed male, who was never paralyzed or diagnosed with right hemiplegia on admission date 09/05/2025 or discharge date 09/06/2025. I subsequently spoke to [facility] Neuro-Oncologist Dr. Aren Bardales, conveying all of the above information, and Dr. Bardales recommended that we increase patient's dexamethasone dose from 2mg PO daily (already administered to the patient on 09/06/2025, 8:17am) to 4mg PO daily (administered to the patient on 09/06/2025, 4:57pm), in an attempt to mitigate patient's worsening vasogenic edema/inflammation. Dr. Bardales also recommended that patient be transferred urgently to [facility] and forego the conventional waiting period for patient's insurance plan to review and authorize patient transfer from [facility] to [facility]. To this end, I spoke with [facility] Neuro-Critical Care Dr. Xin Patten, who concurred with Dr. Bardales, and who also informed me that she will have to confer with other members of her patient transfer team now, and that in the interim, [facility] should start the process of faxing patient's face sheet to [facility] ( ) and that [facility] should start the process of providing patient transport via ambulance to transfer patient from [facility] Tele bed #E209-1 to [facility] Telemetry Floor. I subsequently confirmed with patient's nurse, Mr. Billy Gloria on 09/06/2025, 4:26pm, that patient's face sheet had been successfully faxed to [facility] ( ), and that steps were already being taken to coordinate transport via ambulance to transfer patient from [facility] Tele bed #E209-1 to [facility] Telemetry Floor on 09/06/2025. (4) Vasogenic edema: See bullet #3 above for details. Plan The patient is a 55-year-old male with a past medical history including GBM occipital lobe and parietal lobe diagnosed 01/25/2021 and surgery 01/24/2021. Status post radiation therapy in 2020. Seizures noted in 2020 with patient on Keppra 1500 mg p.o. twice daily Onfi 5 mg at bedtime. On 04/25/2025 patient underwent right craniotomy with resection of of a suspected recurrence of GBM by Dr. Duron at the [facility], however, pathology was negative. Patient is presently scheduled undergo craniotomy on 09/11/2025. Earlier this ev ening, he had bilateral hand tingling, felt lightheaded and nauseous around 19:50, then developed right facial droop, and right arm and leg weakness. His noted some slowed and slurred speech around 21:30, and patient was brought to the emergency department for assessment. In the emergency department he was evaluated initially as a stroke alert, with CT head showing provide progressive vasogenic edema left hemisphere, and stable postoperative The left parietal lobe and intermittent left convexity subdural fluid collection. There is no hemorrhage, hydrocephalus or herniation noted. CT angiography head and neck were both negative. While in the emergency department, patient was initially noted to have decreased strength right upper and lower extremity, and right facial droop. Strength improved to normal while still in ED, right facial droop was significantly improved but not resolved. Telestroke neurology consult recommends that the patient be admitted for monitoring, EEG in the morning, and possible MRI. notes, that the patient is due for an MRI on 09/08 at [facility], as pretesting appointment at the facility where he will be having neurosurgery on 09/11/2025. Telestroke recommends no change in dexamethasone dosing at 2 mg daily, does recommend giving an additional dose of Keppra this evening. #Transient right hemiplegia/right facial droop- The patient will be admitted to telemetry for serial cardiac enzymes, serial EKG's, cardiac rhythm monitoring and a 2-D echocardiogram with Dopplers. Initially evaluated as strokelike symptoms, however, [facility] telestroke neurology feels more related to seizure type activity. As noted, patient's symptoms completely resolved while still in the emergency department, except for right facial droop was about 90% resolved. Continue dexamethasone 2 mg p.o. daily, aspirin 325 mg daily, gabapentin 300 mg daily, temozolomide 1 mg daily, naltrexone 4.5 mg daily. Will give an additional dose of Keppra this evening, and otherwise continue Keppra 1500 mg p.o. twice daily as recommended by telestroke neurology. EEG is ordered for the morning. His reports that the patient is due for an MRI of the brain on 09/08 at [facility], as pretesting for neurosurgery on 09/11/2025 #Hyperlipidemia- Continue atorvastatin and Zetia #Psychiatric- Continue fluoxetine, gabapentin, melatonin #Diabetes mellitus- Hold metformin Glucose 103 on admission Hold on routine testing unless morning labs elevated #PIERRE- Utilizes CPAP 6 cm of water at bedtime as needed #Chronic suppressive therapy- Continue valacyclovir #-Allergic symptoms- Continue loratadine Admission HPI Per Admitting Provider The patient is a 55-year-old male with a past medical history including GBM occipital lobe and parietal lobe diagnosed 01/25/2021 and surgery 01/24/2021. Status post radiation therapy in 2020. Seizures noted in 2020 with patient on Keppra 1500 mg p.o. twice daily Onfi 5 mg at bedtime. On 04/25/2025 patient underwent right craniotomy with resection of of a suspected recurrence of GBM by Dr. Duron at the [facility], however, pathology was negative. Patient is presently scheduled undergo craniotomy on 09/11/2025. Earlier this evening, he had bilateral hand tingling, felt lightheaded and nauseous around 19:50, then developed right facial droop, and right arm and leg weakness. His noted some slowed and slurred speech around 21:30, and patient was brought to the emergency department for assessment. In the emergency department he was evaluated initially as a stroke alert, with CT head showing provide progressive vasogenic edema left hemisphere, and stable postoperative The left parietal lobe and intermittent left convexity subdural fluid collection. There is no hemorrhage, hydrocephalus or herniation noted. CT angiography head and neck were both negative. While in the emergency department, patient was initially noted to have decreased strength right upper and lower extremity, and right facial droop. Strength improved to normal while still in ED, right facial droop was significantly improved but not resolved. Telestroke neurology consult recommends that the patient be admitted for monitoring, EEG in the morning, and possible MRI. notes, that the patient is due for an MRI on 09/08, as likely workup at the facility where he will be having neurosurgery at 09/11/2025. Telestroke recommends no change in dexamethasone dosing at 2 mg daily, does recommend giving an additional dose of Keppra this evening. Discharge Exam Constitutional General: comfortable, coherent, cooperative. Wide awake and alert. Not confused, lethargic, or obtunded. Patient speaks in complete, fluent, and articulate sentences spontaneously, but frequently pauses and pauses and pauses, and cannot answer simple, direct questions posed to him about today's date (e.g., 09/06/2025) or tomorrow's date (e.g., 09/07/2025), the name of the hospital where he is located ([facility] [facility]), the city in which the hospital where is located (e.g., [place], [place]), as patient pauses and pauses and pauses, and says nothing at all. Patient remains wide awake and alert, and can follow commands; he simply has difficulty answering questions posed to him by hospitalist service, nursing staff, and his own , all of whom were present at the patient's bedside on admission date 09/05/2025 and on discharge date 09/06/2025, as if he is thinking about what to say before answering the simple, direct questions. No facial droop. No dysarthria. HEENT: normocephalic, atraumatic. EOMI. PERRL. No nystagmus, gaze paresis, anisocoria, miosis, mydriasis, hyphema, scleral injection, conjunctivitis, or pterygium. No otorrhea. No rhinorrhea. No pharyngeal erythema, edema, or discharge. Neck: supple, no stridor, bruit, goiter, JVD. Jugular venous pressure is estimated to be 3 cm above the sternal angle of Chris, which in turn, is 5 cm above the level of the right atrium; hence, jugular venous pressure is estimated to be 8 cm H2O, which is normal. Lymph: no anterior/posterior cervical, supraclavicular, infraclavicular, axillary, epitrochlear, or inguinal lymphadenopathy. Chest: symmetric rise and falls with respirations. Non-tender to palpation. Lungs: clear to auscultation and percussion; no audible expiratory wheeze, egophony, pectoriloquy, increase in tactile fremitus, or flatness/dullness to percussion at the bases. Heart: RRR, S1 and S2 noted. No S3 or S4 summation gallop. No tripartite friction rub. Grade II/ early systolic murmur @ LLSB without radiation to the carotids, axilla, or back, and which remains invariant in regards to the respiratory cycle. Abdomen: soft, non-tender, non-distended. No rebound, guarding, Vieira's sign, or organomegaly. Bowel sounds auscultated in all 4 quadrants. Extremity: no clubbing, cyanosis, or edema. 2+ pedal pulses bilaterally. Skin: no decubitus ulcer, exanthem, or enanthem. Neuro: alert and oriented in regards to person, place, time, and situation. DTR+. 4/5 motor strength in all 4 extremities, both proximally and distally. No pronator drift. Psychiatric: no flat affect. Smiles appropriately. Discharge Plan Discharge Items Patient Disposition: Transfer Acute Care Hospital Reason For Visit: COMPLEX PARTIAL SEIZURE, RIGHT SIDE WEAKNESS, GBM Discharge Diagnosis: 1. Rule out recurrent glioblastoma multiforme lesion (6.4 cm x 5.1 cm x 6.0 cm) extending from the left parietal resection cavity into the left parietal lobe, left frontal lobe, crossing over the corpus callosum, and into the right frontal lobe, as reported on 09/06/2025, 11:45am MRI brain with/without IV contrast. Rule out radiation necrosis from patient having received radiation therapy x 6.5 weeks starting in February 2021 @ [facility], to treat patient's glioblastoma multiforme of left parietal lobe (diagnosed on February 01, 2021, s/p resection of left parietal lobe, [facility], NeuroSurgeon Dr. Dany Orantes). 2. Rule out increased seizure activity (as noted on 09/06/2025, 6:13am to 6:33am EEG) due to suspected recurrent glioblastoma multiforme lesion (6.4 cm x 5.1 cm x 6.0 cm) extending from the left parietal resection cavity into the left parietal lobe, left frontal lobe, crossing over the corpus callosum, and into the right frontal lobe, as reported on 09/06/2025, 11:45am MRI brain with/without IV contrast, despite full compliance with home-scheduled levetiracetam 1500mg PO bid, clobazam 5mg PO qhs, and temozolomide 100mg PO qam. Patient was subsequently continued on the above 3 medications and started on depakote DR (valproic acid) 500mg PO bid (09/06/2025, 12:19pm) as per [facility] Neurologist Dr. Sam Corbin. 3. 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 cf., 5 x 7 mm chronic subdural hematoma overlying left cerebral convexity, as reported on outside hospital 05/29/2025 MRI brain with/without IV contrast. 4. Expressive aphasia, right hand, right arm, and right leg paresis, s/p rule out acute CVA. Probably due to recurrent glioblastoma multiforme (6.4 cm x 5.1 cm x 6.0 cm) extending from the left parietal resection cavity into the left parietal lobe, left frontal lobe, crossing over the corpus callosum, and into the right frontal lobe, as reported on 09/06/2025, 11:45am MRI brain with/without IV contrast. Condition on Discharge: Fair Activity: Resume your previous activity Lifting: Gradually increase as tolerated Bathing: No limitations Exercise/Sports: As tolerated Weightbearing: Full weightbearing Non-emergency contact: Primary Care Provider, Surgeon and Neurologist Call non-emergency contact if: you have any medication questions and your symptoms worsen Follow-up/Referrals: Bj Gallegos DO [Primary Care Provider] - Diet: Heart Healthy Addtl Attending Provider Instructions: 1. See your Neuro-Oncologist Dr. Aren Bardales @ [facility] on 09/06/2025. 2. See your Neuro-Surgeon Chief Dr. Tong Koehler II @ [facility] on 09/06/2025. 3. See your accepting Neuro-Critical Care Accepting Dr. Xin Patten @ [facility] on 09/06/2025. Pending Studies at Discharge: No Stand-Alone Forms: My [facility] Skilled Items Patient informed of condition?: Yes DNR: No Discharge Level of Care: Other Communicable Disease: No Discharge Prognosis: Stable Lines: None Urinary Catheter: No Medications and DC Order Prescriptions: New divalproex 500 mg Tablet,Delayed Release (Dr/Ec) 500 mg PO BID Qty: 60 0RF pantoprazole 40 mg Tablet,Delayed Release (Dr/Ec) 40 mg PO QAM Qty: 30 0RF dexamethasone 4 mg Tablet 4 mg PO DAILY Qty: 30 0RF Continued atorvastatin 80 mg tablet 80 mg PO DAILY Qty: 90 3RF ezetimibe [Zetia] 10 mg tablet 10 mg PO DAILY Qty: 90 3RF melatonin 10 mg capsule 20 mg PO HS levetiracetam [Keppra] 1,000 mg tablet 1,500 mg PO BID digestive enzymes Tablet 1 tab PO DAILY Qty: 30 0RF clobazam 10 mg tablet 5 mg PO HS temozolomide 100 mg capsule 100 mg PO DAILY fluoxetine 20 mg capsule 20 mg PO HS Rx Instructions: WILL TITRATE UP 60 MG SOON, CURRENTLY ON 20 MG valacyclovir [Valtrex] 1 gram tablet 1,000 mg PO DAILY loratadine [Claritin] 10 mg tablet 10 mg PO DAILY gabapentin 300 mg capsule 300 mg PO HS Nayzilam 5 mg/spray (0.1 mL) spray,non-aerosol 5 mg intranasal ONCE PRN (Reason: Seizures) naltrexone 4.5 mg Capsule 4.5 mg PO DAILY Held metformin 500 mg tablet 250 mg PO DAILY Hold Instructions: Resume on 09/16/25. aspirin 325 mg tablet 325 mg PO DAILY Hold Instructions: Resume on 09/16/25. Hold OFF ASA 325mg PO daily until you see and speak with your Neuro-Oncologist Dr. Aren Bardales and your Neuro- Surgeon Chief Dr. Tong Koehler II @ [facility] as you may undergo brain surgery on 09/11/2025. Rx Instructions: STOPPED BECAUSE SURGERY WILL BE September Discontinued MUSHROOM 2 cap PO DAILY Qty: 2 0RF dexamethasone 2 mg tablet 2 mg PO QAM Discharge Orders: Discharge Order (Routine); Ordered 09/06/25 Ordered By: Shelton Akins Admission Data Admit Date/Time: 09/05/25 23:44 Attending Provider: Omar Farley Admit Provider: Omar Farley Primary Care Provider: Bj Gallegos Other Providers: Omar Farley Hospital Stay Data Consultations 09/05/25 22:32 ED Decision to Admit Stat Diagnostic Imagining Performed 09/05/25 21:18 CT angio head w con Stat CT angio neck with con Stat CT head/brain wo con Stat 09/06/25 11:45 MR brain seizure wo/w con Stat Pending Results Patient Have Any Pending Studies at Discharge: No Discharge Instructions Given to Patient (Per Discharging Provider) 1. See your Neuro-Oncologist Dr. Aren Bardales @ [facility] on 09/06/2025. 2. See your Neuro-Surgeon Chief Dr. Tong Koehler II @ [facility] on 09/06/2025. 3. See your accepting Neuro-Critical Care Accepting Dr. Xin Patten @ [facility] on 09/06/2025. Total Time Total Time Spent Total Time Spent (In Minutes): 35 minutes. Of this time period, 19 minutes were spent in coordinating patient's discharge. Coding Level of Care Code 17175 INP/OBS DISCH >30 MIN Diagnoses GBM (glioblastoma multiforme) C71.9 Seizure R56.9 Stroke-like symptoms R29.90 Vasogenic edema G93.6
[2025-09-06] MEDS: cloBAZam 5 MG TAB PO SCH (20:38)
== END 2025-09-06 21:40 | disposition home or self-care (01) ==
LOC: SUATTDRO → 2E 21:09 → ED 21:09 → 2E 09-06 01:28